=== PATIENT | female | born 1980 ===

== ENCOUNTER 2019-11-06 10:19 | Emergency (ER) | payer SELFPAY ==
--- NOTE | 2019-11-06 12:53 | Emergency Department Report ---
HPI - General Chief Complaint: Sore Throat Time Seen by Provider: 11/06/19 12:31 - HPI HPI: 32-year-old female here complaint headache cough, sore throat low-grade fever. She said she took Tylenol and her temperature went down. Patient reported that her son had similar symptoms a few weeks ago and child all terrain vehicle technician diagnosed him with a cold and was told to stay home for 2 days. She says she is now developing the same symptoms. Headache located to the front of her head 2 out of 10. She reports cough is strained. Headache is achy on and off. Headache is relieved with Tylenol. Denies any nausea vomiting, shortness of breath or chest pain. ED Past Medical Hx - Past Medical History Previous Medical History?: Yes Hx Hypertension: Yes Hx Diabetes: Yes - Surgical History Past Surgical History?: Yes Additional Surgical History: - Family History Family history: hypertension - Social History Smoking Status: Never Smoker Substance Use Type: None - Medications Home Medications: Home Medications Medication Instructions Recorded Confirmed Last Taken Type Albuterol INH(or & Nicu Only) 2 puff IH Q6H PRN #1 inhalation 11/06/19 Unknown Rx [ProAir HFA Inhaler] levoFLOXacin [Levaquin] 750 mg PO QDAY #6 tablet 11/06/19 Unknown Rx ED Review of Systems ROS: Stated complaint: COUGHING, HEADACHE Other details as noted in HPI Constitutional: chills, fever ENT: throat pain, congestion. denies: ear pain Respiratory: cough. denies: orthopnea, shortness of breath, SOB with exertion, SOB at rest, stridor, wheezing Cardiovascular: denies: chest pain, palpitations, dyspnea on exertion, edema, syncope Gastrointestinal: denies: abdominal pain, nausea, vomiting, diarrhea, constipation, hematemesis, hematochezia Genitourinary: denies: urgency, dysuria, hematuria Skin: denies: rash Neurological: headache. denies: abnormal gait, vertigo Physical Exam - Physical Exam Vital Signs: Vital Signs 11/06/19 10:33 Temperature 99.5 F Pulse Rate 132 H Respiratory 20 Rate Blood Pressure 155/101 O2 Sat by Pulse 98 Oximetry Vital Signs 11/06/19 11/06/19 11/06/19 10:33 13:02 13:07 Temperature 99.5 F Pulse Rate 132 H 111 H Respiratory 20 20 18 Rate Blood Pressure 155/101 Blood Pressure 146/91 [Left] O2 Sat by Pulse 98 99 Oximetry 11/06/19 14:07 Temperature Pulse Rate 96 H Respiratory 20 Rate Blood Pressure Blood Pressure 148/88 [Left] O2 Sat by Pulse 97 Oximetry General: This is a 38-year-old female well-nourished well-developed and nontoxic in appearance. She is in no acute distress at present. Physical Exam: Head: Normocephalic atraumatic. Mouth: Oral mucosa moist, mild erythema to oropharynx, tongue is normal, uvula is midline, no HUMAN RESOURCES REPRESENTATIVE or drooling, oral airways patent and uvula is Lungs: Clear to auscultated bilaterally, no rhonchi wheezes or rales. No use of accessory muscles. Dry cough. Neck: Supple, no tracheal deviation. No C-spine tenderness and full range of motion. Negative stridor and negative crepitus CV: S1, S2. Tachycardic Abdomen: Nontender to palpate in all quadrants, normal bowel sounds in all quadrants. No distention. Eyes: Bilateral pupils equal and reactive to light, conjunctival injection or icterus. Bilateral EOM intact and normal accommodation. Lids are normal. No swelling noted. Skin: Patient with areas 2 face bilaterally with dry scaly, no erythema or swel ling noted. Extremity: No cce. + 2 pulses in all extremities, no neurovascular compromise. Mood: Normal mood and behavior Neurological: No focal neurological deficit. She is able to ambulate without any difficulties. Normal gait, speech is clear fluid, she is alert and oriented 3, no motor or sensory deficits. Normal strength all extremities and normal reflexes. Negative Romberg and negative pronator drift Back: Nontender to palpate to vertebral spine from C-spine to L-spine including sacral area. No paraspinal tenderness and no CVA tenderness. No rash noted. ED Course Vital Signs 11/06/19 10:33 Temperature 99.5 F Pulse Rate 132 H Respiratory 20 Rate Blood Pressure 155/101 O2 Sat by Pulse 98 Oximetry Vital Signs 11/06/19 11/06/19 11/06/19 10:33 13:02 13:07 Temperature 99.5 F Pulse Rate 132 H 111 H Respiratory 20 20 18 Rate Blood Pressure 155/101 Blood Pressure 146/91 [Left] O2 Sat by Pulse 98 99 Oximetry 11/06/19 14:07 Temperature Pulse Rate 96 H Respiratory 20 Rate Blood Pressure Blood Pressure 148/88 [Left] O2 Sat by Pulse 97 Oximetry - Reevaluation(s) Reevaluation #1: 11/06/19 14:07 Patient given Tylenol 975 mg p.o. in emergency room . Chest x-ray positive for PNA. Influenza and strep test negative. CBC, CMP ordered. Patient to be started on IV fluids x1 L. Vital signs stabilized Reevaluation #2: 11/06/19 14:53 Patient stable in no acute distress. I updated her on her x-ray report. Pending lab report. Infusing Reevaluation #3: 11/06/19 15:[address] Acuna regarding patient's presentation, complaints, chest x-ray results. Her vital signs are stable and she says she is feeling better. Patient awaiting infectious disease consult per Dr. Acuna. Reevaluation #4: 11/06/19 16:[address] Sheridan from [facility] infectious disease and gave him results on x-ray along with laboratory results and he wants patient to follow-up in office outpatient and to treat patient for pneumonia. ED Medical Decision Making - Lab Data Result diagrams: 11/06/19 15:21 11/06/19 15:21 Lab Results 11/06/19 11/06/19 11/06/19 Range/Units 15:21 15:21 15:21 WBC 4.4 L (4.5-11.0) K/mm3 RBC 5.16 H (3.65-5.03) M/mm3 Hgb 15.4 H (10.1-14.3) gm/dl Hct 44.5 H (30.3-42.9) % MCV 86 (79-97) fl MCH 30 (28-32) pg MCHC 35 H (30-34) % RDW 13.1 L (13.2-15.2) % Plt Count 158 (140-440) K/mm3 Lymph % (Auto) 23.8 (13.4-35.0) % [place] % (Auto) 5.9 (0.0-7.3) % Eos % (Auto) 0.1 (0.0-4.3) % Baso % (Auto) 0.1 (0.0-1.8) % Lymph # 1.0 L (1.2-5.4) K/mm3 [place] # 0.3 (0.0-0.8) K/mm3 Eos # 0.0 (0.0-0.4) K/mm3 Baso # 0.0 (0.0-0.1) K/mm3 Seg Neutrophils % 70.1 H (40.0-70.0) % Seg Neutrophils # 3.1 (1.8-7.7) K/mm3 Sodium 139 (137-145) mmol/L Potassium 4.2 (3.6-5.0) mmol/L Chloride 101.1 (98-107) mmol/L Carbon Dioxide 23 (22-30) mmol/L Anion Gap 19 mmol/L BUN 6 L (7-17) mg/dL Creatinine 0.3 L (0.7-1.2) mg/dL Estimated GFR > 60 ml/min BUN/Creatinine Ratio 20 % Glucose 281 H (65-100) mg/dL Calcium 9.2 (8.4-10.2) mg/dL Total Bilirubin 0.40 (0.1-1.2) mg/dL AST 12 (5-40) units/L ALT 15 (7-56) units/L Alkaline Phosphatase 99 (35-129) units/L Total Protein 7.2 (6.3-8.2) g/dL Albumin 4.5 (3.9-5) g/dL Albumin/Globulin Ratio 1.7 % HCG, Qual Negative (Negative) Influenza A (Rapid) (Negative) Influenza B (Rapid) (Negative) Group A Strep Rapid (Negative) 11/06/19 Range/Units Unknown WBC (4.5-11.0) K/mm3 RBC (3.65-5.03) M/mm3 Hgb (10.1-14.3) gm/dl Hct (30.3-42.9) % MCV (79-97) fl MCH (28-32) pg MCHC (30-34) % RDW (13.2-15.2) % Plt Count (140-440) K/mm3 Lymph % (Auto) (13.4-35.0) % [place] % (Auto) (0.0-7.3) % Eos % (Auto) (0.0-4.3) % Baso % (Auto) (0.0-1.8) % Lymph # (1.2-5.4) K/mm3 [place] # (0.0-0.8) K/mm3 Eos # (0.0-0.4) K/mm3 Baso # (0.0-0.1) K/mm3 Seg Neutrophils % (40.0-70.0) % Seg Neutrophils # (1.8-7.7) K/mm3 Sodium (137-145) mmol/L Potassium (3.6-5.0) mmol/L Chloride (98-107) mmol/L Carbon Dioxide (22-30) mmol/L Anion Gap mmol/L BUN (7-17) mg/dL Creatinine (0.7-1.2) mg/dL Estimated GFR ml/min BUN/Creatinine Ratio % Glucose (65-100) mg/dL Calcium (8.4-10.2) mg/dL Total Bilirubin (0.1-1.2) mg/dL AST (5-40) units/L ALT (7-56) units/L Alkaline Phosphatase (35-129) units/L Total Protein (6.3-8.2) g/dL Albumin (3.9-5) g/dL Albumin/Globulin Ratio % HCG, Qual (Negative) Influenza A (Rapid) Negative (Negative) Influenza B (Rapid) Negative (Negative) Group A Strep Rapid Negative (Negative) - Radiology Data Radiology results: report reviewed Chest x-ray dictated by radiologist and report reviewed by myself. Please see details below Findings [facility] [address] [place] [address] XRay Report Signed Patient: VISHAL HERNANDEZ MR#: [id number] : 1980 Acct:[id number] Age/Sex: 38 / F ADM Date: 11/06/19 Loc: ED Attending Dr: Ordering Physician: BARTOLOME ODEN Date of Service: 11/06/19 Procedure(s): XR chest routine 2V Accession Number(s): [id number] cc: BARTOLOME ODEN Fluoro Time In Minutes: CHEST 2 VIEWS INDICATION / CLINICAL INFORMATION: cough, fever. COMPARISON: None available. FINDINGS: SUPPORT DEVICES: None. HEART / MEDIASTINUM: No significant abnormality. LUNGS / PLEURA: Airspace opacities are seen in the right upper lobe. The lungs are otherwise clear. No significant pleural effusion. No pneumothorax. ADDITIONAL FINDINGS: No significant additional findings. IMPRESSION: Right upper lobe airspace opacities are most concerning for pneumonia given the provided history. Follow-up PA and lateral chest radiographs in 2-3 weeks are recommended to document clearing. Signer Name: Vaibhav Edouard MD Signed: 11/06/2019 1:35 PM Workstation Name: [id number] Transcribed By: RASHEED Dictated By: Vaibhav Edouard MD Electronically Authenticated By: Vaibhav Edouard MD Signed Date/Time: 11/06/191334 DD/ 33 TD/TT: - Differential Diagnosis PNA, TB, bronchitis, pharyngitis, sinusitis Critical care attestation.: If time is entered above; I have spent that time in minutes in the direct care of this critically ill patient, excluding procedure time. ED Disposition Clinical Impression: Cough in adult patient Pneumonia Qualifiers: Pneumonia type: due to unspecified organism Laterality: right Lung location: upper lobe of lung Qualified Code(s): J18.9 - Pneumonia, unspecified organism Disposition: DC-01 TO HOME OR SELFCARE Is pt being admited?: No Does the pt Need Aspirin: No Condition: Stable Instructions: Community-acquired Pneumonia (ED), Acute Cough (ED) Additional Instructions: Please follow-up with your primary care doctor in 2 days Please follow-up with infectious disease in 1 to 2 days. Call tomorrow to schedule an appointment. See referral 1n discharge and information instructions Take antibiotic as prescribed. You received your first dose in emergency room so we will start taking on 01/07/2020 at 5 PM Increase your fluid intake Use albuterol inhaler every every 4 to 6 hours as needed for cough and/or wheezing If your condition worsens, return to the emergency room See discharge instructions on Covid- 19 from [facility] for your information Please avoid going outside until seen by infectious disease doctor Wear your mask when outside and practice good hand hygiene Referrals: [facility] [Other] - 11/08/19 [facility] [Provider Group] - 11/08/19
[2019-11-06] MEDS ORDERED: ACETAMINOPHEN 325 MG TAB PO ONE (12:55)
--- NOTE | 2019-11-06 13:40 | XRay Report ---
CHEST 2 VIEWS INDICATION / CLINICAL INFORMATION: cough, fever. COMPARISON: None available. FINDINGS: SUPPORT DEVICES: None. HEART / MEDIASTINUM: No significant abnormality. LUNGS / PLEURA: Airspace opacities are seen in the right upper lobe. The lungs are otherwise clear. N o significant pleural effusion. No pneumothorax. ADDITIONAL FINDINGS: No significant additional findings. IMPRESSION: Right upper lobe airspace opacities are most concerning for pneumonia given the provided history. Fol low-up PA and lateral chest radiographs in 2-3 weeks are recommended to document clearing. Signer Name: Vaibhav Edouard MD Signed: 11/06/2019 1:35 PM Workstation Name: [id number]
[2019-11-06] MEDS ORDERED: SODIUM CHLORIDE 0.9% 1000 ML 1,000 ML IV ONE (14:06)
[2019-11-06 14:08] VITALS: BP 148/88
[2019-11-06 15:56] LABS: Basophils % (Auto) 0.1 % (0.0-1.8); Eosinophils % (Auto) 0.1 % (0.0-4.3); Hematocrit 44.5 % (30.3-42.9); Hemoglobin 15.4 gm/dl (10.1-14.3); Lymphocytes % (Auto) 23.8 % (13.4-35.0); Mean Corpuscular HGB Conc 35 % (30-34); Mean Corpuscular Volume 86 fl (79-97); Monocytes # (Auto) 0.3 K/mm3 (0.0-0.8); Monocytes % (Auto) 5.9 % (0.0-7.3); Platelet Count 158 K/mm3 (140-440); Red Blood Count 5.16 M/mm3 (3.65-5.03); Red Cell Distribution Width 13.1 % (13.2-15.2)
[2019-11-06 16:18] LABS: Alanine Aminotransferase 15 units/L (7-56); Albumin 4.5 g/dL (3.9-5); BUN/Creatinine Ratio 20; Blood Urea Nitrogen 6 mg/dL (7-17); Calcium 9.2 mg/dL (8.4-10.2); Hemolysis Index 4
[2019-11-06] MEDS ORDERED: levoFLOXacin 750 MG TAB PO ONE (16:44)
== END 2019-11-06 17:34 | disposition home or self-care (01) ==
LOC: ED 10:19
DX: J18.9 Pneumonia, unspecified organism (principal); I10 Essential (primary) hypertension; E11.9 Type 2 diabetes mellitus without complications; Z98.890 Other specified postprocedural states
CPT/HCPCS: 36415; 71046; 80053; 84703; 85025; 87116; 87400; 87430; 99283; J7030